=== PATIENT | male | born 1980 ===

== ENCOUNTER 2021-11-23 10:38 | Inpatient (IN) | payer MEDICAID ==
[~2021-11-23] VITALS: Ht 172.7 cm; Wt 79.0 kg
[2021-11-23] MEDS ORDERED: KETOROLAC TROMETHAMINE 30 MG/ML VIAL IVP ONE (11:30)
[2021-11-23] MEDS ORDERED: SODIUM CHLORIDE 0.9% 1,000 ML IV ONE (11:30)
[2021-11-23 11:39] LABS: BASOPHILS % (AUTO) 0.8 % (0.0-2.0); EOSINOPHILS % (AUTO) 3.6 % (1.0-6.0); HEMATOCRIT 43.7 % (41-53); HEMOGLOBIN 14.2 g/dL (13.5-17.5); LYMPHOCYTES # (AUTO) 2.1 K/uL (1.0-4.8); LYMPHOCYTES % (AUTO) 30.1 % (22.0-44.0); MEAN CORPUSCULAR HEMOGLOBIN 29.3 pg (26.0-34.0); MEAN CORPUSCULAR HGB CONC 32.4 G/dL (31.0-37.0); MEAN CORPUSCULAR VOLUME 90 fL (80-100); MONOCYTES # (AUTO) 0.5 K/uL (0.1-1.0); MONOCYTES % (AUTO) 7.2 % (2.0-9.0); NEUTROPHILS % (AUTO) 58.3 % (40.0-70.0); PLATELET COUNT (AUTO) 164 K/uL (150-450); RED BLOOD CELL COUNT(AUTO) 4.84 MIL/uL (4.50-5.90); RED CELL DISTRIBUTION WIDTH 13.1 % (11.5-14.5)
[2021-11-23 11:43] LABS: ANION GAP 4 mmol/L (8-16); CALCIUM, TOTAL 8.9 mg/dL (8.8-10.5); CARBON DIOXIDE 31 mmol/L (22-29); CHLORIDE 107 mmol/L (98-107); CREATININE 1.01 mg/dL (0.60-1.30); GLOMERULAR FILTR. RATE CALC > 60 mL/min (>60); GLUCOSE,RANDOM 106 mg/dL (70-110); SODIUM SERUM 142 mmol/L (136-145); UREA NITROGEN, BLOOD 15 mg/dL (7-18)
[2021-11-23 11:50] LABS: ALANINE AMINOTRANSFERASE 28 U/L (12-78); ALBUMIN 3.8 g/dL (3.4-5.0); ALKALINE PHOSPHATASE 73 U/L (46-116); ASPARTATE AMINOTRANSFERASE 23 U/L (15-37); BILIRUBIN,TOTAL 0.3 mg/dL (0.1-1.0); LIPASE 125 U/L (73-393); TOTAL PROTEIN, SERUM 7.6 g/dL (6.4-8.2)
[2021-11-23 12:15] LABS: APPEARANCE,URINE CLEAR (CLEAR); BILIRUBIN,URINE NEGATIVE (NEGATIVE); GLUCOSE, URINE (UA) NEGATIVE (NEGATIVE); KETONES,URINE NEGATIVE (NEGATIVE); LEUKOCYTE ESTERASE ,URINE NEGATIVE (NEGATIVE); NITRATE,URINE NEGATIVE (NEGATIVE); OCCULT BLOOD,URINE TRACE (NEGATIVE); PROTEIN,URINE TRACE mg/dL (NEGATIVE); SPECIFIC GRAVITIY, URINE 1.018 (1.003-1.030); UROBILINOGEN,URINE <=1.0 mg/dL (<=1.0)
[2021-11-23 12:26] LABS: BACTERIA,URINE None Seen /HPF (None Seen); SQUAMOUS EPITHELIAL CELL,UR Few /LPF (None Seen); WBC,URINE None Seen /HPF (0-5)
[2021-11-23] MEDS ORDERED: SODIUM CHLORIDE 0.9% 100 ML ONE (12:54)
[2021-11-23] MEDS ORDERED: IOHEXOL 300 MG/ML 100 ML VIAL ONE (12:54)
[2021-11-23] MEDS ORDERED: MORPHINE SULFATE 4 MG/ML SYRINGE IVP ONE (14:30)
[2021-11-23 14:41] LABS: COVID AG,FIA SOURCE NASAL SWAB
[2021-11-23] MEDS ORDERED: MAGNESIUM HYDROXIDE SUSPENSION 30 ML UDCUP PO PRN (17:15)
[2021-11-23] MEDS ORDERED: ACETAMINOPHEN 325 MG TABLET PO PRN (17:15)
[2021-11-23] MEDS ORDERED: ONDANSETRON HCL 4 MG/2 ML VIAL IVP PRN (17:15)
[2021-11-23] MEDS: SODIUM CHLORIDE 0.9% 1,000 ML IV SCH (17:26)
[2021-11-23] MEDS: CefTRIAXone 1 GM/DEXTROSE 50 ML IV SCH (17:42)
[2021-11-23 21:00] VITALS: BP 145/90
[2021-11-23] MEDS: DOCUSATE SODIUM 100 MG CAPSULE PO SCH (21:00)
[2021-11-24] MEDS ORDERED: INFLUENZA VIRUS VACCINE QVS 2022-23 (6MO+)/PF 60 MCG/0.5 ML SYRINGE IM. ONE (02:30)
[2021-11-24] MEDS ORDERED: PNEUMOCOCCAL VACCINE POLYVALENT 0.5 ML VIAL [PPSV23] IM. ONE (02:30)
[2021-11-24] MEDS: SODIUM CHLORIDE 0.9% 1,000 ML IV SCH ×2 (03:41→17:17)
[2021-11-24 04:42] VITALS: BP 139/87
[2021-11-24] MEDS: PANTOPRAZOLE SODIUM 40 MG/VIAL IVP SCH (08:26)
[2021-11-24] MEDS: DOCUSATE SODIUM 100 MG CAPSULE PO SCH ×2 (08:26→20:39)
[2021-11-24 08:58] VITALS: BP 154/98
[2021-11-24] MEDS ORDERED: IOHEXOL 240 MG/ML 50 ML VIAL ONE (12:36)
[2021-11-24] MEDS ORDERED: SODIUM CL IRRIG SOLN BAG 3,000 ML IRRIG ONE (12:36)
[2021-11-24] MEDS ORDERED: RINGERS SOLUTION,LACTATED 1,000 ML IV ONE (14:09)
[2021-11-24] MEDS ORDERED: CefTRIAXone SODIUM 1 GM/VIAL ONE (15:13)
[2021-11-24] MEDS ORDERED: FentaNYL CITRATE PF 100 MCG/2 ML VIAL IVP PRN (15:30)
[2021-11-24] MEDS ORDERED: HYDROmorphone 2 MG/ML VIAL IVP PRN (15:30)
[2021-11-24] MEDS ORDERED: SUGAMMADEX SODIUM 200 MG/2 ML VIAL IVP ONE (16:36)
[2021-11-24 17:20] VITALS: BP 153/96
[2021-11-24] MEDS: CefTRIAXone 1 GM/DEXTROSE 50 ML IV SCH (17:39)
[2021-11-24 18:26] LABS: APPEARANCE,URINE CLEAR (CLEAR); BILIRUBIN,URINE NEGATIVE (NEGATIVE); GLUCOSE, URINE (UA) NEGATIVE (NEGATIVE); KETONES,URINE NEGATIVE (NEGATIVE); LEUKOCYTE ESTERASE ,URINE NEGATIVE (NEGATIVE); NITRATE,URINE NEGATIVE (NEGATIVE); OCCULT BLOOD,URINE NEGATIVE (NEGATIVE); PH,URINE 6.5 (5.0-8.0); PROTEIN,URINE NEGATIVE (NEGATIVE); UROBILINOGEN,URINE <=1.0 mg/dL (<=1.0)
[2021-11-24 19:10] VITALS: BP 150/89
[2021-11-24] MEDS ORDERED: OXYGEN THERAPY IH SCH (20:00)
[2021-11-24] MEDS: MORPHINE SULFATE 2 MG/ML SYRINGE IVP PRN (23:53)
[2021-11-25 04:24] VITALS: BP 137/77
[2021-11-25] MEDS: SODIUM CHLORIDE 0.9% 1,000 ML IV SCH ×2 (04:24→09:15)
[2021-11-25 08:00] VITALS: BP 145/87
[2021-11-25] MEDS: DOCUSATE SODIUM 100 MG CAPSULE PO SCH (09:00)
[2021-11-25] MEDS: PANTOPRAZOLE SODIUM 40 MG/VIAL IVP SCH (11:15)
[2021-11-25] MEDS: MORPHINE SULFATE 2 MG/ML SYRINGE IVP PRN (11:15)
[2021-11-25] MEDS ORDERED: MIDAZOLAM HCL 2 MG/2 ML VIAL IVP ONE (17:16)
[2021-11-25] MEDS ORDERED: FentaNYL CITRATE PF 100 MCG/2 ML VIAL IVP ONE (17:16)
[2021-11-28 09:07] LABS: STONE CA-OXALATE MONOHYDRATE 100 %; STONE COLOR Brown; STONE SIZE 4x3 mm; STONE WEIGHT 88 mg
== END 2021-11-25 17:17 | disposition home or self-care (01) | DRG 446 ==
LOC: EMS 10:42 → 6S 18:40
PROVIDERS: ADMIT Internal Medicine; ATTEND Internal Medicine
PROC: 0TC78ZZ Extirpation of Matter from Left Ureter, Via Natural or Artificial Opening Endoscopic (ICD-10-PCS; 2021-11-24)
PROC: 0T778DZ Dilation of Left Ureter with Intraluminal Device, Via Natural or Artificial Opening Endoscopic (ICD-10-PCS; 2021-11-24)
PROC: BT1F1ZZ Fluoroscopy of Left Kidney, Ureter and Bladder using Low Osmolar Contrast (ICD-10-PCS; principal; 2021-11-24 15:00)
DX: N13.2 Hydronephrosis with renal and ureteral calculous obstruction (principal); Z20.822 Contact with and (suspected) exposure to COVID-19; Z87.442 Personal history of urinary calculi; Z79.899 Other long term (current) drug therapy
CPT/HCPCS: 74177; 80053; 81001; 81003; 82365; 83690; 85025; 87081; 99285; C9113; J0696; J1885; J2250; J2270; J3010; J7030; J7050; J7120; Q9966; Q9967